=== PATIENT | male | born 1955 | race Caucasian/White ===

== ENCOUNTER 2018-11-05 06:36 | Day surgery (SDC) | payer MEDICARE ==
[2018-11-02 12:35] VITALS: BMI 41.3
[2018-11-05] MEDS ORDERED: Fentanyl 100 MCG/2 ML VIAL ONE (06:54)
[2018-11-05] MEDS ORDERED: Famotidine/PF 20 mg/2ml Vial ONE (06:54)
[2018-11-05] MEDS ORDERED: Bacitracin Zinc Ointment 30 gm TUBE ONE (06:56)
[2018-11-05] MEDS ORDERED: EPINEPHrine 1 MG/ML AMP ONE (06:56)
[2018-11-05] MEDS ORDERED: Lidocaine 1% w/Epinephrine 1:100K 30 ML VIAL ONE (06:56)
[2018-11-05] MEDS ORDERED: Bupivacaine/Epinephrine 0.25% 30 ML VIAL ONE (06:56)
[2018-11-05] MEDS ORDERED: Sodium Chloride 0.9% 10 ML ONE (06:56)
[2018-11-05 07:56] LABS: Hemoglobin 13.3 g/dL (14.0-18.0)
[2018-11-05 08:12] LABS: Anion Gap 12 mmol/L (10-20); BUN (Urea Nitrogen) 14 mg/dL (8.4-25.7); Calc. Creatinine Clearance 130 mL/min (70-130); Calcium 8.7 mg/dL (7.8-10.44); Carbon Dioxide 25 mmol/L (23-31); Chloride 108 mmol/L (98-107); Estimated GFR-MDRD 73; Glucose 118 mg/dL (80-115); Potassium 3.9 mmol/L (3.5-5.1); Sodium 141 mmol/L (136-145)
[2018-11-05] MEDS ORDERED: Fentanyl 250 MCG/5 ML VIAL ONE (08:49)
[2018-11-05] MEDS ORDERED: Midazolam HCl 2 mg/2 ml Vial ONE (08:55)
[2018-11-05] MEDS ORDERED: Gelfilm 1 EA Packet ONE (09:44)
--- NOTE | 2018-11-05 15:12 | OP ---
DATE OF PROCEDURE: 11/05/2018 PREOPERATIVE DIAGNOSIS: Right chronic otitis media. PROCEDURES PERFORMED: 1. Right tympanoplasty mastoidectomy without ossicular chain reconstruction. 2. Skull defect repair less than 5 cm. 3. Microscopic surgical procedure. POSTOPERATIVE DIAGNOSIS: Right chronic otitis media. ANESTHESIA: General. COMPLICATIONS: None. ESTIMATED BLOOD LOSS: 5 mL. SPECIMENS: None. OUTPATIENT THERAPIST: None. DISPOSITION: Stable to recovery room. SUMMARY: Basic right tympanoplasty mastoidectomy underlay for central anterior perf, 360 degree coverage, all move well, block, fibrous tissue removed. Chorda tympani intact, unmolested, and tegmen tympani defect repair of about 0.5 cm to 6 mm using bone mohan. PROCEDURE IN DETAIL: Procedure #1: Right tympanoplasty mastoidectomy without ossicular chain reconstruction: After informed consent was obtained, the patient was taken to the operating room and placed in supine position. General endotracheal anesthesia was administered. Table was rotated 180 degrees. Right ear was injected postauricular and transcanal with 0.25% Marcaine with epinephrine. When the right ear was draped and prepped in sterile fashion, microscopic was brought into view and elevated flap transcanal down to the annulus, placed lidocaine. Postauricular incision was made with a 10 blade and carried down reflected. Forward pericranial flap was elevated with Bovie and harvested fascia was placed on the back table to dry. Connected the incisions, basic performed and opened up the attic, inspected the attic well. There was some dense fibrinous tissue, which was not completely blocking the attic, but about 80%, this was removed and discarded. The perforation was rimmed using a Kang needle and cups. Gelfilm and Gelfoam were used in the middle ear for support and graft placement and underlay with 360-degree coverage. Gelfoam was placed lateral down to ear canal after flap was placed back down. Procedure #2: Skull defect repair: The defect was noted in the tegmen, it was a pre-existing defect clearly. The bone mohan was harvested during the critical portion of the mastoidectomy and this was applied after mixing with serum and coapted and compressed and dried. The mastoid cavity was obliterated and compressed densely with Gelfoam for support. Then, care was taken when application of the bone mohan that the attic had been protected with Gelfoam prior to application. Postauricular incision was closed with 2-0 and 3-0 and Dermabond for the skin. Bacitracin ointment filled the ear canal, and cotton ball was applied. Procedure #3: Microscopic surgical procedure: Throughout the entirety of the operation, microscope was interval part of the procedure using 2 to 14 power and high illumination. Facial nerve considerations: Based on the patient's age and weight, it was felt best not to monitor the nerve unless necessary. EMG electrodes were placed for the ground, but left off, but none replaced in the facial nerve. No time was the facial nerve even visualized either the mesotympanum or in a vertical segment of the mastoid. The facial recess was not open. The patient tolerated the procedure well, turned over to anesthesia in a stable condition. Job ID: [id number]
[2018-11-05] MEDS ORDERED: Lidocaine 1% PF 5 ML VIAL ONE (15:36)
[2018-11-05] MEDS ORDERED: Glycopyrrolate 0.2 MG/ML 5 ML SYRINGE ONE (15:36)
[2018-11-05] MEDS ORDERED: Metoclopramide HCl 10 MG/2 ML VIAL ONE (15:36)
[2018-11-05] MEDS ORDERED: Ketorolac Tromethamine 30 MG/ML VIAL ONE (15:36)
[2018-11-05] MEDS ORDERED: Ondansetron PF 4 MG/2 ML Vial ONE (15:36)
[2018-11-05] MEDS ORDERED: Rocuronium Bromide 10 MG/ML (10ML VIAL) ONE (15:36)
[2018-11-05] MEDS ORDERED: PHENYLEPHRINE-NS 100 MCG/ML 10 ML SYRINGE ONE (15:36)
[2018-11-05] MEDS ORDERED: Succinylcholine Chloride 20 MG/ML 10 ml SYRINGE FS ONE (15:36)
[2018-11-05] MEDS ORDERED: Dexamethasone 20 MG/5 ML VIAL ONE (15:36)
[2018-11-05] MEDS ORDERED: PROPOFOL 200 MG/20 ML VIAL ONE (15:36)
[2018-11-05] MEDS ORDERED: ePHEDrine/0.9% NaCl/PF SYRINGE 50 mg/10 ml ONE (15:36)
--- NOTE | 2018-11-09 20:16 | EKG ---
Test Reason : PREOP Blood Pressure : / mmHG Vent. Rate : 074 BPM Atrial Rate : 074 BPM P-R Int : 180 ms QRS Dur : 082 ms QT Int : 380 ms P-R-T Axes : 062 013 039 degrees QTc Int : 421 ms Sinus rhythm with Premature supraventricular complexes Otherwise normal ECG No previous ECGs available Confirmed by Juan J BETANCOURT ([id number]) on 11/09/2018 8:15:32 PM Referred By: BOOKER Confirmed By:Juan J BETANCOURT
== END 2018-11-05 13:25 | disposition home or self-care (01) ==
LOC: SDC 06:36
PROVIDERS: ATTEND Otolaryngology Otology & Neurotology
PROC: 09Q70ZZ Repair Right Tympanic Membrane, Open Approach (ICD-10-PCS; principal; 2018-11-05)
PROC: 0NQ Head and Facial Bones, Repair (ICD-10-PCS; 2018-11-05)
DX: H66.91 Otitis media, unspecified, right ear (principal); H90.6 Mixed conductive and sensorineural hearing loss, bilateral; E78.00 Pure hypercholesterolemia, unspecified; R03.0 Elevated blood-pressure reading, without diagnosis of hypertension; Z79.899 Other long term (current) drug therapy; Z79.82 Long term (current) use of aspirin
CPT/HCPCS: 36415; 80048; 85014; 85018; 93005; 93010; 96374; J0131; J0171; J1100; J1885; J2001; J2250; J2405; J2704; J2765; J3010; J3490; S0028

== ENCOUNTER 2019-04-04 08:22 | Outpatient (CLI) | payer MEDICARE ==
--- NOTE | 2019-04-04 09:40 | MRI ---
MRI CERVICAL SPINE: HISTORY: Cervical radiculopathy. Multiplanar multisequence noncontrast enhanced MRI images cervical spine obtained. FINDINGS: The spinal cord is unremarkable with no evidence of cord masses or lesions. C1-2: Unremarkable. C2-3: There is a mild central disc bulge minimally but not significantly compressing the thecal sac. The neural foramen are patent. C3-4: There is a mild central disc bulge minimally but not significantly compressing the thecal sac. The neural foramen are patent. C4-5: There is some disc desiccation seen. There is a broad-based disc osteophyte complex centrally c ompressing the thecal sac resulting in mild to moderate compression of the thecal sac. The neural foramen are patent. C5-6: There is disc desiccation seen. There is a broad-based disc osteophyte complex centrally compre ssing the thecal sac resulting in moderate degree of central stenosis. Mild bilateral neural foraminal narrowing seen. C6 7: Disc desiccation seen. There is a broad-based disc osteophyte complex centrally compressing the thecal sac resulting in a moderate degree of thecal sac compression. Moderate left and mild right-sided neural foraminal narrowing seen due to uncovertebral osteophyte hypertrophy. C7-T1: Unremarkable IMPRESSION: Mid cervical changes of spinal stenosis as described above. Transcribed Date/Time: 04/04/2019 9:43 AM
== END 2019-04-04 08:23 | disposition home or self-care (01) ==
LOC: SCSMRI 08:22
PROVIDERS: ATTEND Family Medicine
DX: M54.12 Radiculopathy, cervical region (principal); M48.02 Spinal stenosis, cervical region
CPT/HCPCS: 72141

== ENCOUNTER 2019-07-30 19:30 | Outpatient (CLI) | payer MEDICARE | END 2019-07-30 19:31 | disposition home or self-care (01) | LOC: SLEEPLAB 19:30 | PROVIDERS: ATTEND Family Medicine | DX: G47.33 Obstructive sleep apnea (adult) (pediatric) (principal); E66.9 Obesity, unspecified; K21.9 Gastro-esophageal reflux disease without esophagitis; I10 Essential (primary) hypertension; Z68.41 Body mass index [BMI] 40.0-44.9, adult | CPT/HCPCS: 95811 ==

== ENCOUNTER 2019-11-01 08:51 | Outpatient (CLI) | payer MEDICARE ==
--- NOTE | 2019-11-01 10:07 | MRI ---
LUMBAR SPINE MRI WITHOUT CONTRAST: DATE: 11/01/2019. COMPARISON: None. HISTORY: Sciatica, back pain. TECHNIQUE: Multiplanar multisequence MR imaging of the lumbar spine obtained without contrast. FINDINGS: The sagittal STIR imaging demonstrates no focal area of osseous marrow edema. On the basis of 5 lumbar-type vertebral bodies, the conus medullaris terminates at the L1 level. T12-L1: There is disc space narrowing and disc desiccation. Mild bilateral facet hypertrophy. Small d isc-osteophyte complex noted in the left paracentral region. No central canal or neural foraminal stenosis. L1-2: Disc space narrowing and disc desiccation with mild disc bulge. Bilateral facet hypertrophy, le ft greater than right. Mild central canal stenosis and mild left neural foraminal stenosis. L2-3: There is disc space narrowing with disc desiccation and mild disc bulge. Mild bilateral facet h ypertrophy. Mild central canal stenosis. No significant neural foraminal stenosis. L3-4: Severe bilateral facet hypertrophy. There is disc space narrowing and disc desiccation with mil d disc bulge. Severe bilateral ligamentum flavum hypertrophy. These findings lead to severe central canal stenosis and moderate/severe bilateral neural foraminal stenosis, right greater than left. L4-5: Anterolisthesis noted measuring 1 cm. Bilateral L4 pars defects. Severe bilateral facet hypertr ophy. Severe bilateral neural foraminal stenosis, right greater than left. Mild central canal stenosis. L5-S1: Disc space narrowing and disc desiccation with mild disc-osteophyte complex and mild central c anal stenosis. Bilateral facet hypertrophy with moderate right and mild left neural foraminal stenosis. Imaged retroperitoneal structures demonstrate no acute findings. IMPRESSION: Severe degenerative change of the lumbar spine, most significant at the L3-4 and L4-5 levels as yoandy led above. Transcribed Date/Time: 11/01/2019 10:35 AM
== END 2019-11-01 08:52 | disposition home or self-care (01) ==
LOC: BICMRI 08:51
PROVIDERS: ATTEND Family Medicine
DX: M54.41 Lumbago with sciatica, right side (principal); M47.816 Spondylosis without myelopathy or radiculopathy, lumbar region
CPT/HCPCS: 72148

== ENCOUNTER 2021-03-23 14:01 | Outpatient (CLI) | payer MEDICARE ==
[2021-03-23 16:02] LABS: Hemoglobin 13.6 g/dL (13.5-17.5); Mean Corpuscular HGB CONC 31.8 g/dL (32.0-36.0); Mean Corpuscular Hemoglobin 26.5 pg (27.0-33.0); Mean Corpuscular Volume 83.4 fl (81.2-95.1); Mean Platelet Volume 10.7 fl (7.4-10.4); Platelet Count 208 10x3/uL (150-450); RBC Distribution Width 14.9 % (11.5-14.5); Red Blood Cell (RBC) Count 5.13 10x6/uL (4.32-5.72); White Blood Cell (WBC) Count 7.8 10x3/uL (3.5-10.5)
[2021-03-23 16:09] LABS: PTT 28.1 sec (22.0-33.0); Prothrombin Time 10.8 sec (9.5-12.1)
[2021-03-23 16:16] LABS: Anion Gap 13 mmol/L (10-20); BUN (Urea Nitrogen) 22 mg/dL (8.4-25.7); Calc. Creatinine Clearance 0 mL/min (70-130); Calcium 9.3 mg/dL (7.8-10.44); Carbon Dioxide 28 mmol/L (23-31); Chloride 103 mmol/L (98-107); Glucose 95 mg/dL (80-115); Potassium 4.5 mmol/L (3.5-5.1); Sodium 139 mmol/L (136-145)
== END 2021-03-23 14:02 | disposition home or self-care (01) ==
LOC: LABBT 14:01
PROVIDERS: ATTEND Surgery
DX: Z01.818 Encounter for other preprocedural examination (principal); M43.16 Spondylolisthesis, lumbar region; M48.062 Spinal stenosis, lumbar region with neurogenic claudication; M54.16 Radiculopathy, lumbar region; Z20.822 Contact with and (suspected) exposure to COVID-19
CPT/HCPCS: 80048; 85027; 85610; 85730; 86850; 86900; 86901; 93005; U0002; U0005; 93010

== ENCOUNTER 2021-03-25 07:21 | Inpatient (IN) | payer MEDICARE ==
[2021-03-24 00:08] LABS: SARS-CoV-2 NAA Rapid Test Not Detected (NotDetected)
[2021-03-24 09:40] VITALS: BMI 40.1
[2021-03-25] MEDS ORDERED: Thrombin 5000 UNITS/5 ML VIAL ONE (07:45)
[2021-03-25] MEDS ORDERED: Fentanyl 250 MCG/5 ML VIAL ONE (09:00)
[2021-03-25] MEDS ORDERED: PROPOFOL 200 MG/20 ML VIAL ONE (09:45)
[2021-03-25] MEDS ORDERED: Dexamethasone 20 MG/5 ML VIAL ONE (09:45)
[2021-03-25] MEDS ORDERED: Ondansetron PF 4 MG/2 ML Vial ONE (09:45)
[2021-03-25] MEDS ORDERED: Rocuronium Bromide 10 MG/ML (10ML VIAL) ONE (09:45)
[2021-03-25] MEDS ORDERED: Fentanyl 100 MCG/2 ML VIAL ONE ×3 (13:09→16:10)
[2021-03-25] MEDS ORDERED: Acetaminophen 325 MG TAB PO PRN (15:07)
[2021-03-25] MEDS ORDERED: HYDROcodone/Acetaminophen 7.5/325 mg Tablet PO PRN (15:07)
[2021-03-25] MEDS ORDERED: Acetaminophen/Codeine 30-300mg Tablet PO PRN (15:07)
[2021-03-25] MEDS ORDERED: Milk Of Magnesia 30 ML UDCUP PO PRN (15:07)
[2021-03-25] MEDS ORDERED: HYDROmorphone 0.5 MG/0.5 ML SYRINGE ONE (15:30)
[2021-03-25] MEDS: Sodium Chloride 0.9% 1,000 ML IV SCH (16:57)
[2021-03-25] MEDS: CEFAZOLIN 2 GM in Premix Bag 1 BAG IVPB SCH ×2 (17:25→23:22)
[2021-03-25] MEDS ORDERED: Promethazine HCl 12.5 MG in Sodium Chloride 0.9% 50 ML IVPB PRN (17:47)
[2021-03-25] MEDS: Ondansetron PF 4 MG/2 ML Vial IVP PRN ×2 (17:57→23:16)
[2021-03-25] MEDS: Morphine 2 MG/ML VIAL SLOW IVP PRN ×2 (18:01→21:43)
[2021-03-25] MEDS: Diazepam 5 MG TAB PO PRN (21:42)
[2021-03-25] MEDS: Atorvastatin Calcium 10 MG TAB PO SCH ×2 (21:42→22:11)
[2021-03-25] MEDS: Fluticasone Propionate Nasal Spray 16 gm Bottle NASAL SCH (22:11)
[2021-03-26] MEDS: Morphine 2 MG/ML VIAL SLOW IVP PRN (02:03)
[2021-03-26] MEDS: traMADol HCl 50 MG TAB PO PRN ×3 (03:43→18:53)
[2021-03-26] MEDS: Diazepam 5 MG TAB PO PRN ×3 (03:43→21:31)
[2021-03-26 05:22] LABS: #Lymphocytes 0.6 thou/uL (1.20-3.40); #Monocytes 0.8 thou/uL (0.11-0.59); #Neutrophils 9.5 thou/uL (1.40-6.50); %Eosinophils 0.1 % (0.0-10.0); %Lymphocytes 5.4 % (21.0-51.0); %Monocytes 7.2 % (0.0-10.0); %Neutrophils 87.3 % (42.0-75.0); Hemoglobin 11.4 g/dL (14.0-18.0); Mean Corpuscular HGB CONC 32.7 g/dL (32.0-36.0); Mean Corpuscular Hemoglobin 27.9 pg (27.0-31.0); Mean Corpuscular Volume 85.3 fL (78.0-98.0); Mean Platelet Volume 8.3 fL (7.4-10.4); Platelet Count 162 thou/uL (130-400); RBC Distribution Width 13.8 % (11.5-14.5); Red Blood Cell (RBC) Count 4.08 mill/uL (4.70-6.10); White Blood Cell (WBC) Count 10.9 thou/uL (4.8-10.8)
[2021-03-26 05:41] LABS: Anion Gap 7 mmol/L (10-20); BUN (Urea Nitrogen) 19 mg/dL (8.4-25.7); Calc. Creatinine Clearance 136 mL/min (70-130); Calcium 8.4 mg/dL (7.8-10.44); Carbon Dioxide 29 mmol/L (23-31); Chloride 105 mmol/L (98-107); Glucose 142 mg/dL (80-115); Potassium 4.4 mmol/L (3.5-5.1); Sodium 137 mmol/L (136-145)
[2021-03-26] MEDS: Sodium Chloride 0.9% 1,000 ML IV SCH ×2 (08:11→18:54)
[2021-03-26] MEDS: CEFAZOLIN 2 GM in Premix Bag 1 BAG IVPB SCH ×2 (08:32→16:11)
[2021-03-26] MEDS: CeleCOXIB 100 MG CAP PO SCH (08:38)
[2021-03-26] MEDS: Fluticasone Propionate Nasal Spray 16 gm Bottle NASAL SCH (08:39)
[2021-03-26] MEDS: Loratadine 10 MG TAB PO SCH (08:40)
[2021-03-26] MEDS: Atorvastatin Calcium 10 MG TAB PO SCH (21:31)
[2021-03-27] MEDS: Fluticasone Propionate Nasal Spray 16 gm Bottle NASAL SCH ×3 (00:29→20:44)
[2021-03-27] MEDS: CEFAZOLIN 2 GM in Premix Bag 1 BAG IVPB SCH ×3 (00:31→12:03)
[2021-03-27] MEDS: Sodium Chloride 0.9% 1,000 ML IV SCH ×2 (06:05→22:04)
[2021-03-27] MEDS: CeleCOXIB 100 MG CAP PO SCH (09:06)
[2021-03-27] MEDS: Loratadine 10 MG TAB PO SCH (09:07)
[2021-03-27] MEDS ORDERED: Labetalol HCl 100 MG/20 ML VIAL SLOW IVP PRN (09:58)
[2021-03-27] MEDS ORDERED: hydrALAZINE 20 MG/ML VIAL SLOW IVP PRN (09:58)
[2021-03-27] MEDS: Atorvastatin Calcium 10 MG TAB PO SCH (20:44)
[2021-03-28 05:39] LABS: #Basophils 0.1 thou/uL (0.0-0.2); #Eosinphils 0.3 thou/uL (0.0-0.7); #Lymphocytes 0.9 thou/uL (1.20-3.40); #Monocytes 0.7 thou/uL (0.11-0.59); #Neutrophils 6.8 thou/uL (1.40-6.50); %Basophils 0.7 % (0.0-1.0); %Lymphocytes 10.4 % (21.0-51.0); %Monocytes 8.1 % (0.0-10.0); %Neutrophils 77.8 % (42.0-75.0); Hemoglobin 11.5 g/dL (14.0-18.0); Mean Corpuscular HGB CONC 33.1 g/dL (32.0-36.0); Mean Corpuscular Hemoglobin 28.2 pg (27.0-31.0); Mean Corpuscular Volume 85.1 fL (78.0-98.0); Mean Platelet Volume 8.1 fL (7.4-10.4); Platelet Count 150 thou/uL (130-400); RBC Distribution Width 13.7 % (11.5-14.5); Red Blood Cell (RBC) Count 4.09 mill/uL (4.70-6.10); White Blood Cell (WBC) Count 8.8 thou/uL (4.8-10.8)
[2021-03-28 05:59] LABS: Anion Gap 11 mmol/L (10-20); BUN (Urea Nitrogen) 12 mg/dL (8.4-25.7); Calc. Creatinine Clearance 144 mL/min (70-130); Calcium 8.3 mg/dL (7.8-10.44); Carbon Dioxide 27 mmol/L (23-31); Chloride 102 mmol/L (98-107); Glucose 114 mg/dL (80-115); Potassium 4.1 mmol/L (3.5-5.1); Sodium 136 mmol/L (136-145)
[2021-03-28] MEDS: Sodium Chloride 0.9% 1,000 ML IV SCH (08:39)
[2021-03-28] MEDS: Loratadine 10 MG TAB PO SCH (08:50)
[2021-03-28] MEDS: CeleCOXIB 100 MG CAP PO SCH (08:51)
[2021-03-28] MEDS: Fluticasone Propionate Nasal Spray 16 gm Bottle NASAL SCH (08:53)
[2021-03-28] MEDS ORDERED: Docusate 100 MG CAP PO SCH ×2 (11:15→21:00)
[2021-03-28 19:15] VITALS: BP 122/78; TEMP 98.8
== END 2021-03-28 19:10 | disposition home or self-care (01) | DRG 460 ==
LOC: SDC 07:21 → SJJU 15:07
PROVIDERS: ADMIT Surgery; ATTEND Internal Medicine
PROC: 0SG00AJ Fusion of Lumbar Vertebral Joint with Interbody Fusion Device, Posterior Approach, Anterior Column, Open Approach (ICD-10-PCS; principal; 2021-03-25)
PROC: 01NB0ZZ Release Lumbar Nerve, Open Approach (ICD-10-PCS; 2021-03-25)
PROC: 01NR0ZZ Release Sacral Nerve, Open Approach (ICD-10-PCS; 2021-03-25)
PROC: 0SB20ZZ Excision of Lumbar Vertebral Disc, Open Approach (ICD-10-PCS; 2021-03-25)
PROC: 3E0U0GB Introduction of Recombinant Bone Morphogenetic Protein into Joints, Open Approach (ICD-10-PCS; 2021-03-25)
DX: M48.062 Spinal stenosis, lumbar region with neurogenic claudication (principal); Z68.41 Body mass index [BMI] 40.0-44.9, adult; M43.16 Spondylolisthesis, lumbar region; M54.16 Radiculopathy, lumbar region; Z20.822 Contact with and (suspected) exposure to COVID-19; E66.01 Morbid (severe) obesity due to excess calories; I10 Essential (primary) hypertension; E78.5 Hyperlipidemia, unspecified; G47.33 Obstructive sleep apnea (adult) (pediatric); K21.9 Gastro-esophageal reflux disease without esophagitis; R50.9 Fever, unspecified; Z53.20 Procedure and treatment not carried out because of patient's decision for unspecified reasons; Z79.899 Other long term (current) drug therapy; Z88.2 Allergy status to sulfonamides; Z79.82 Long term (current) use of aspirin; Z98.49 Cataract extraction status, unspecified eye; Z80.1 Family history of malignant neoplasm of trachea, bronchus and lung; Z80.0 Family history of malignant neoplasm of digestive organs
CPT/HCPCS: 36415; 76000; 80048; 85025; 85027; 85610; 85730; 86850; 86900; 86901; 93005; 93970; C1713; C1768; J0690; J1100; J1170; J2270; J2405; J2550; J2704; J3010; J3370; U0002; U0005

== ENCOUNTER 2021-04-30 14:10 | Outpatient (CLI) | payer MEDICARE | END 2021-04-30 14:11 | disposition home or self-care (01) | LOC: BICRAD 14:10 | PROVIDERS: ATTEND Physician Assistant | DX: M47.26 Other spondylosis with radiculopathy, lumbar region (principal); M48.062 Spinal stenosis, lumbar region with neurogenic claudication; M43.16 Spondylolisthesis, lumbar region; Z98.890 Other specified postprocedural states | CPT/HCPCS: 72100 ==

== ENCOUNTER 2021-06-16 15:23 | Outpatient (CLI) | payer MEDICARE ==
[2021-06-16 16:19] LABS: #Eosinphils 0.4 10x3/uL (0.0-0.5); #Monocytes 0.6 10x3/uL (0.0-1.1); #Neutrophils 5.1 10x3/uL (1.5-8.4); %Basophils 0.4 % (0.0-2.0); %Eosinophils 5.8 % (0.0-6.0); %Lymphocytes 16.8 % (18.0-47.0); %Monocytes 7.4 % (0.0-10.0); %Neutrophils 69.2 % (40.0-75.0); Mean Corpuscular HGB CONC 31.5 g/dL (32.0-36.0); Mean Corpuscular Hemoglobin 25.9 pg (27.0-33.0); Mean Corpuscular Volume 82.1 fl (81.2-95.1); Mean Platelet Volume 10.5 fl (7.4-10.4); Platelet Count 232 10x3/uL (150-450); RBC Distribution Width 14.4 % (11.5-14.5); Red Blood Cell (RBC) Count 4.64 10x6/uL (4.32-5.72); White Blood Cell (WBC) Count 7.4 10x3/uL (3.5-10.5)
[2021-06-16 16:31] LABS: ALT (SGPT) 31 U/L (8-55); AST (SGOT) 22 U/L (5-34); Albumin 4.1 g/dL (3.4-4.8); Alkaline Phosphatase 113 U/L (40-110); Anion Gap 13 mmol/L (10-20); BUN (Urea Nitrogen) 17 mg/dL (8.4-25.7); Bilirubin, Total 1.1 mg/dL (0.2-1.2); Calc. Creatinine Clearance 0 mL/min (70-130); Calcium 9.6 mg/dL (7.8-10.44); Carbon Dioxide 27 mmol/L (23-31); Chloride 104 mmol/L (98-107); Globulin 2.7 g/dL (2.4-3.5); Glucose 102 mg/dL (80-115); Potassium 3.9 mmol/L (3.5-5.1); Protein, Total 6.8 g/dL (5.8-8.1); Sodium 140 mmol/L (136-145)
[2021-06-16 17:08] LABS: SARS-CoV-2 NAA Rapid Test Not Detected (NotDetected)
== END 2021-06-16 15:24 | disposition home or self-care (01) ==
LOC: LABBT 15:23
PROVIDERS: ATTEND Preventive Medicine Preventive Medicine/Occupational Environmental Medicine
DX: Z01.812 Encounter for preprocedural laboratory examination (principal); Z20.822 Contact with and (suspected) exposure to COVID-19
CPT/HCPCS: 80053; 85025; U0002

== ENCOUNTER 2021-06-17 07:52 | Day surgery (SDC) | payer MEDICARE ==
[2021-06-16 17:22] VITALS: BMI 409.0
[2021-06-17] MEDS ORDERED: cefOXitin Sodium/Dextrose 2 GM/50 ML BAG ONE (08:52)
[2021-06-17] MEDS ORDERED: Lidocaine 1% w/Epinephrine 1:100K 20 ML VIAL ONE (10:02)
[2021-06-17] MEDS ORDERED: Bacitracin Zinc Ointment 30 gm TUBE ONE (10:02)
[2021-06-17] MEDS ORDERED: Bupivacaine PF 0.5% 30 ML VIAL ONE (10:02)
[2021-06-17] MEDS ORDERED: Methylene Blue 50 MG/10 ML AMPUL ONE (10:02)
[2021-06-17] MEDS ORDERED: Fentanyl 100 MCG/2 ML VIAL ONE (10:08)
[2021-06-17] MEDS ORDERED: Ketorolac Tromethamine 30 MG/ML VIAL ONE (10:28)
[2021-06-17] MEDS ORDERED: Ondansetron PF 4 MG/2 ML Vial ONE (10:28)
[2021-06-17] MEDS ORDERED: Metoclopramide HCl 10 MG/2 ML VIAL ONE (10:28)
[2021-06-17] MEDS ORDERED: Dexamethasone 20 MG/5 ML VIAL ONE (10:28)
[2021-06-17] MEDS ORDERED: Lidocaine 1% PF 5 ML VIAL ONE (10:28)
[2021-06-17] MEDS ORDERED: PROPOFOL 200 MG/20 ML VIAL ONE (10:28)
== END 2021-06-17 13:19 | disposition home or self-care (01) ==
LOC: SDC 07:52
PROVIDERS: ATTEND Surgery
PROC: 0H88XZZ Division of Buttock Skin, External Approach (ICD-10-PCS; principal; 2021-06-17)
DX: K61.1 Rectal abscess (principal); I10 Essential (primary) hypertension; E78.00 Pure hypercholesterolemia, unspecified; E66.9 Obesity, unspecified; Z68.41 Body mass index [BMI] 40.0-44.9, adult; Z86.16 Personal history of COVID-19; Z79.82 Long term (current) use of aspirin; Z79.899 Other long term (current) drug therapy; Z88.2 Allergy status to sulfonamides; Z98.1 Arthrodesis status
CPT/HCPCS: 87070; 87205; J0694; J1100; J1885; J2405; J2704; J2765; J3010; Q9968; S0020

== ENCOUNTER 2022-05-05 13:49 | Outpatient (CLI) | payer MEDICARE ==
[2022-05-05 16:27] LABS: #Eosinphils 0.4 10x3/uL (0.0-0.5); #Monocytes 0.5 10x3/uL (0.0-1.1); %Basophils 0.7 % (0.0-2.0); %Lymphocytes 19.7 % (18.0-47.0); %Monocytes 7.5 % (0.0-10.0); %Neutrophils 65.6 % (40.0-75.0); Hemoglobin 12.6 g/dL (13.5-17.5); Mean Corpuscular HGB CONC 32.2 g/dL (32.0-36.0); Mean Corpuscular Volume 80.8 fl (81.2-95.1); Mean Platelet Volume 10.9 fl (7.4-10.4); Platelet Count 201 10x3/uL (150-450); RBC Distribution Width 14.7 % (11.5-14.5); Red Blood Cell (RBC) Count 4.84 10x6/uL (4.32-5.72); White Blood Cell (WBC) Count 6.1 10x3/uL (3.5-10.5)
[2022-05-05 16:54] LABS: INR-International Normal Ratio 0.9; PTT 27.7 sec (22.0-33.0); Prothrombin Time 10.3 sec (9.5-12.1)
[2022-05-05 16:55] LABS: Anion Gap 16 mmol/L (10-20); BUN (Urea Nitrogen) 21 mg/dL (8.4-25.7); Calc. Creatinine Clearance 0 mL/min (70-130); Calcium 9.1 mg/dL (7.8-10.44); Carbon Dioxide 24 mmol/L (23-31); Chloride 106 mmol/L (98-107); Estimated GFR 75; Glucose 84 mg/dL (80-115); Potassium 4.2 mmol/L (3.5-5.1); Sodium 142 mmol/L (136-145)
== END 2022-05-05 13:50 | disposition home or self-care (01) ==
LOC: LABBT 13:49
PROVIDERS: ATTEND Orthopaedic Surgery
DX: Z01.818 Encounter for other preprocedural examination (principal); M16.11 Unilateral primary osteoarthritis, right hip; Z20.822 Contact with and (suspected) exposure to COVID-19
CPT/HCPCS: 80048; 85025; 85610; 85730; 87081; 87811; 93005; 93010

== ENCOUNTER 2022-05-10 08:24 | Observation (INO) | payer MEDICARE ==
[2022-05-06 13:05] VITALS: BMI 39.7
[2022-05-10] MEDS ORDERED: Tranexamic Acid 1,000 MG/10 ML VIAL ONE (08:55)
[2022-05-10] MEDS ORDERED: Sodium Chloride 0.9% 100 ML ONE ×2 (08:55→11:01)
[2022-05-10] MEDS ORDERED: VANCOMYCIN 2 GRAM/500 ML BAG 2 GM in Premix Bag 1 BAG IVPB SCH (09:00)
[2022-05-10] MEDS ORDERED: Fentanyl 100 MCG/2 ML VIAL ONE (10:23)
[2022-05-10] MEDS ORDERED: Midazolam HCl 2 mg/2 ml Vial ONE (10:23)
[2022-05-10] MEDS ORDERED: Bupivacaine PF 0.5% 30 ML VIAL ONE (10:51)
[2022-05-10] MEDS ORDERED: Ondansetron PF 4 MG/2 ML Vial IVP PRN (10:51)
[2022-05-10] MEDS ORDERED: diphenhydrAMINE 25 MG CAP PO PRN (10:51)
[2022-05-10] MEDS ORDERED: Promethazine HCl 25 MG/ML VIAL IM PRN (10:51)
[2022-05-10] MEDS ORDERED: HYDROcodone/Acetaminophen 10/325 mg Tablet PO PRN (10:51)
[2022-05-10] MEDS ORDERED: Zolpidem Tartrate 5 MG TAB PO PRN (10:51)
[2022-05-10] MEDS ORDERED: Acetaminophen 325 MG TAB PO PRN (10:51)
[2022-05-10] MEDS ORDERED: Fentanyl 100 MCG/2 ML VIAL SLOW IVP PRN ×2 (10:51)
[2022-05-10] MEDS ORDERED: CEFAZOLIN 2 GM VIAL ONE (11:01)
[2022-05-10] MEDS ORDERED: fentaNYL Citrate/PF 100 MCG/2 ML SYRINGE ONE (11:02)
[2022-05-10] MEDS ORDERED: Propofol 500 MG/50 ML VIAL ONE (11:02)
[2022-05-10] MEDS ORDERED: Fluticasone Propionate Nasal Spray 16 gm Bottle NASAL PRN (11:19)
[2022-05-10] MEDS ORDERED: ePHEDrine 50 MG/ML VIAL ONE (11:20)
[2022-05-10] MEDS ORDERED: Phenylephrine 10 MG/ML VIAL ONE (11:20)
[2022-05-10] MEDS ORDERED: Glycopyrrolate 0.2 MG/ML 5 ML SYRINGE ONE (11:20)
[2022-05-10] MEDS ORDERED: Promethazine HCl 25 MG/ML VIAL IVPB PRN (12:10)
[2022-05-10] MEDS ORDERED: Ondansetron HCl/PF 4 MG/2 ML Vial IVP PRN (12:10)
[2022-05-10] MEDS ORDERED: HYDROmorphone 2 MG/ML VIAL SLOW IVP PRN (12:10)
[2022-05-10] MEDS: Ketorolac Tromethamine 30 MG/ML VIAL IVP SCH ×2 (15:58→21:49)
[2022-05-10] MEDS: HYDROcodone/Acetaminophen 10/325 mg Tablet PO PRN (15:59)
[2022-05-10] MEDS: CEFAZOLIN 2 GM in Sodium Chloride 0.9% 100 ML IVPB SCH (18:00)
[2022-05-10] MEDS: Aspirin 81 mg Enteric Coated Tablet PO SCH (21:49)
[2022-05-11] MEDS: CEFAZOLIN 2 GM in Sodium Chloride 0.9% 100 ML IVPB SCH (03:00)
[2022-05-11] MEDS: Ketorolac Tromethamine 30 MG/ML VIAL IVP SCH (05:30)
[2022-05-11 07:06] LABS: Hemoglobin 11.7 g/dL (14.0-18.0); Mean Corpuscular HGB CONC 32.4 g/dL (32.0-36.0); Mean Corpuscular Hemoglobin 27.4 pg (27.0-31.0); Mean Corpuscular Volume 84.5 fL (78.0-98.0); Mean Platelet Volume 8.5 fL (7.4-10.4); Platelet Count 153 thou/uL (130-400); RBC Distribution Width 13.9 % (11.5-14.5); Red Blood Cell (RBC) Count 4.26 mill/uL (4.70-6.10); White Blood Cell (WBC) Count 7.8 thou/uL (4.8-10.8)
[2022-05-11] MEDS: Aspirin 81 mg Enteric Coated Tablet PO SCH (07:59)
[2022-05-11] MEDS ORDERED: Ferrous Gluconate 324 MG TAB PO SCH (08:00)
[2022-05-11] MEDS ORDERED: Cetirizine HCl 10 MG TAB PO SCH (09:00)
[2022-05-11] MEDS ORDERED: Magnesium Oxide 250 MG TAB PO SCH (09:00)
[2022-05-11] MEDS ORDERED: Atorvastatin Calcium 10 MG TAB PO SCH (09:00)
[2022-05-11] MEDS ORDERED: Aspirin 81 mg Enteric Coated Tablet PO SCH (09:00)
[2022-05-11] MEDS ORDERED: Multivitamin W/ Minerals 1 TAB PO SCH (09:00)
[2022-05-11] MEDS ORDERED: Senokot S 8.6-50 MG TAB PO SCH (09:00)
[2022-05-11] MEDS ORDERED: Loratadine 10 MG TAB PO SCH (09:00)
[2022-05-11] MEDS ORDERED: Ondansetron ODT 4 MG TAB PO PRN (10:14)
[2022-05-11] MEDS: HYDROcodone/Acetaminophen 10/325 mg Tablet PO PRN (11:38)
[2022-05-11 11:56] VITALS: BP 147/74; TEMP 99.6
== END 2022-05-11 11:45 | disposition home or self-care (01) ==
LOC: SDC 08:24 → SURG A 15:33
PROVIDERS: ADMIT Orthopaedic Surgery; ATTEND Orthopaedic Surgery
PROC: 0SR90JZ Replacement of Right Hip Joint with Synthetic Substitute, Open Approach (ICD-10-PCS; principal; 2022-05-10)
DX: M16.11 Unilateral primary osteoarthritis, right hip (principal); I10 Essential (primary) hypertension; E78.00 Pure hypercholesterolemia, unspecified; Z79.82 Long term (current) use of aspirin; Z79.899 Other long term (current) drug therapy; Z88.2 Allergy status to sulfonamides; Z86.16 Personal history of COVID-19
CPT/HCPCS: 27130; 73502; 85027; 96374; 96375; 96376 ×2; 97110; 97116 ×2; 97530; 97535; G0378 ×2; J3370; 36415; C1776; J0690; J1885; J2250; J2370; J2405; J2704; J3010; J3490; S0020

== ENCOUNTER 2023-02-27 13:23 | Outpatient (CLI) | payer MEDICARE | END 2023-02-27 13:24 | disposition home or self-care (01) | LOC: RAD 13:23 | PROVIDERS: ATTEND Family Medicine | DX: J32.4 Chronic pansinusitis (principal) | CPT/HCPCS: 71046 ==

== ENCOUNTER 2023-06-23 10:25 | Outpatient (CLI) | payer MEDICARE | END 2023-06-23 10:26 | disposition home or self-care (01) | LOC: RAD 10:25 | PROVIDERS: ATTEND Family Medicine | DX: R06.02 Shortness of breath (principal) | CPT/HCPCS: 71046 ==

== ENCOUNTER 2023-11-16 12:02 | Outpatient (CLI) | payer MEDICARE ==
[2023-11-16 13:21] LABS: Hemoglobin 13.1 g/dL (13.5-17.5); Mean Corpuscular Hemoglobin 26.1 pg (27.0-33.0); Mean Corpuscular Volume 81.7 fl (81.2-95.1); Mean Platelet Volume 10.3 fl (7.4-10.4); Platelet Count 210 10x3/uL (150-450); RBC Distribution Width 14.6 % (11.5-14.5); Red Blood Cell (RBC) Count 5.02 10x6/uL (4.32-5.72); White Blood Cell (WBC) Count 5.3 10x3/uL (3.5-10.5)
[2023-11-16 14:08] LABS: Anion Gap 11 mmol/L (10-20); BUN (Urea Nitrogen) 17 mg/dL (8.4-25.7); Calc. Creatinine Clearance 0 mL/min (70-130); Calcium 9.2 mg/dL (7.8-10.44); Carbon Dioxide 28 mmol/L (23-31); Chloride 104 mmol/L (98-107); Estimated GFR 77; Glucose 105 mg/dL (80-115); Potassium 4.2 mmol/L (3.5-5.1); Sodium 139 mmol/L (136-145)
== END 2023-11-16 12:03 | disposition home or self-care (01) ==
LOC: LABBT 12:02
PROVIDERS: ATTEND Specialist
DX: Z01.818 Encounter for other preprocedural examination (principal); H70.91 Unspecified mastoiditis, right ear
CPT/HCPCS: 80048; 85027; 93005; 93010

== ENCOUNTER 2023-11-23 07:05 | Day surgery (SDC) | payer MEDICARE ==
[2023-11-16 12:43] VITALS: BMI 39.9
[2023-11-23] MEDS ORDERED: Dexamethasone 4 mg/ml Vial ONE (08:56)
[2023-11-23] MEDS ORDERED: fentaNYL PF 100 MCG/2 ML SYRINGE ONE (08:56)
[2023-11-23] MEDS ORDERED: SUGAMMADEX SODIUM 200 MG/2 ML VIAL ONE (08:56)
[2023-11-23] MEDS ORDERED: Ondansetron PF 4 MG/2 ML Vial ONE (08:56)
[2023-11-23] MEDS ORDERED: Rocuronium Bromide 10 MG/ML (10ML VIAL) ONE (08:56)
[2023-11-23] MEDS ORDERED: Lidocaine 1% PF 5 ML VIAL ONE (08:56)
[2023-11-23] MEDS ORDERED: PROPOFOL 20 ML ONE ×2 (08:56→09:04)
[2023-11-23] MEDS ORDERED: EPINEPHrine 1 MG/ML VIAL ONE (09:01)
[2023-11-23] MEDS ORDERED: Lidocaine 1% (PF) 30 ML VIAL ONE (09:02)
[2023-11-23] MEDS ORDERED: Ciprofloxacin 0.2% Otic (0.25ML CONTAINER) ONE (09:02)
[2023-11-23] MEDS ORDERED: Bacitracin Zinc Ointment 30 gm TUBE ONE (09:02)
[2023-11-23] MEDS ORDERED: Phenylephrine 40 MG/NS 250 ML 250 ML ONE (09:04)
[2023-11-23] MEDS ORDERED: Glycopyrrolate 0.2 MG/ML 5 ML SYRINGE ONE (11:07)
== END 2023-11-23 13:30 | disposition home or self-care (01) ==
LOC: SDC 07:05
PROVIDERS: ATTEND Specialist
PROC: 0NB50ZZ Excision of Right Temporal Bone, Open Approach (ICD-10-PCS; principal; 2023-11-23)
DX: H70.11 Chronic mastoiditis, right ear (principal); H66.90 Otitis media, unspecified, unspecified ear; H91.90 Unspecified hearing loss, unspecified ear; I10 Essential (primary) hypertension; E78.00 Pure hypercholesterolemia, unspecified; Z90.89 Acquired absence of other organs; Z79.899 Other long term (current) drug therapy; Z88.2 Allergy status to sulfonamides
CPT/HCPCS: 69641; 87070; 87075; 87205; J0171; J1100; J2001; J2405; J2704

== ENCOUNTER 2023-12-11 09:44 | Outpatient (CLI) | payer MEDICARE ==
[2023-12-11] MEDS ORDERED: Magnevist 469MG/ML 20 ML VIAL ONE (14:14)
== END 2023-12-11 09:45 | disposition home or self-care (01) ==
LOC: MRI 09:44
PROVIDERS: ATTEND Specialist
DX: M51.16 Intervertebral disc disorders with radiculopathy, lumbar region (principal); M47.22 Other spondylosis with radiculopathy, cervical region; M48.061 Spinal stenosis, lumbar region without neurogenic claudication; M48.02 Spinal stenosis, cervical region; Z98.1 Arthrodesis status
CPT/HCPCS: 72141; 72158; A9579

== ENCOUNTER 2025-04-23 07:28 | Outpatient (CLI) | payer MEDICARE ==
[2025-04-23] MEDS ORDERED: Iopamidol 370 76% 100 ML VIAL ONE (12:35)
== END 2025-04-23 07:29 | disposition home or self-care (01) ==
LOC: CT 07:28
PROVIDERS: ATTEND Internal Medicine Gastroenterology
DX: Z15.09 Genetic susceptibility to other malignant neoplasm (principal); K80.20 Calculus of gallbladder without cholecystitis without obstruction
CPT/HCPCS: 74177; Q9967